=== PATIENT | female | born 1960 | race Caucasian/White ===

== ENCOUNTER 2023-12-11 10:46 | Inpatient (IN) | payer MEDICARE, OTHER ==
[2023-12-11] MEDS ORDERED: Ondansetron ODT 4 MG TAB PO PRN (11:59)
[2023-12-11] MEDS ORDERED: Ipratropium/Albuterol 3 ML NEB NEB PRN (11:59)
[2023-12-11] MEDS ORDERED: Guaifenesin DM 100-10/5 ML UDCUP PO PRN (11:59)
[2023-12-11 12:03] VITALS: BMI 23.9
[2023-12-11] MEDS: Sodium Chloride 0.9% 1,000 ML IV SCH (12:44)
[2023-12-11] MEDS ORDERED: Glucagon 1 MG/ML KIT IM PRN (12:45)
[2023-12-11] MEDS ORDERED: REMDESIVIR 200 MG in Sodium Chloride 0.9% 250 ML 210 ML IV SCH (12:45)
[2023-12-11] MEDS ORDERED: Dextrose 5% in Water 1,000 ML IV PRN (12:45)
[2023-12-11] MEDS ORDERED: Dextrose 50% Abboject 50 ML SYRINGE SLOW IVP PRN (12:45)
[2023-12-11 15:16] LABS: Troponin I Less than 0.010 ng/mL (< 0.028)
[2023-12-11] MEDS: Insulin Regular 300 UNITS/3 ML VIAL SC PRN (18:03)
[2023-12-11] MEDS: Famotidine 20 MG TAB PO SCH (21:10)
[2023-12-11] MEDS: HYDROcodone/Acetaminophen 10/325 mg Tablet PO SCH (21:10)
[2023-12-11] MEDS: Ventolin HFA Inhaler 60 PUFF INHALER INH PRN (22:45)
[2023-12-12] MEDS: ALPRAZolam 0.5 MG TAB PO PRN (00:27)
[2023-12-12] MEDS: cefTRIAXone\\ROCEPHIN 1 GM in Sodium Chloride 0.9% 100 ML IVPB SCH (04:12)
[2023-12-12 05:01] LABS: Hematocrit 31.4 % (34.9-44.5); Mean Corpuscular HGB CONC 28.7 g/dL (32.0-36.0); Mean Corpuscular Hemoglobin 22.2 pg (27.0-33.0); Mean Corpuscular Volume 77.5 fl (81.6-98.3); Mean Platelet Volume 9.2 fl (7.4-10.4); Platelet Count 217 10x3/uL (150-450); RBC Distribution Width 18.2 % (11.5-14.5); Red Blood Cell (RBC) Count 4.05 10x6/uL (3.90-5.03)
[2023-12-12 05:02] LABS: Anion Gap 10 mmol/L (10-20); BUN (Urea Nitrogen) 10 mg/dL (9.8-20.1); Calc. Creatinine Clearance 70 mL/min (70-130); Calcium 8.1 mg/dL (7.8-10.44); Carbon Dioxide 22 mmol/L (23-31); Chloride 108 mmol/L (98-107); Estimated GFR 89; Glucose 163 mg/dL (80-115); Potassium 3.7 mmol/L (3.5-5.1); Sodium 136 mmol/L (136-145)
[2023-12-12 05:33] LABS: MDiff Complete? YES
[2023-12-12 06:03] LABS: Band 14 % (5-11); Lymphocytes 3 % (21-51); Monocytes 1 % (0-10); Neutrophil 82 % (42-75)
[2023-12-12 06:11] LABS: Anisocytosis SLIGHT = 6-15 cells (100X) (0-5/hpf); Hypochromia SLIGHT = 6-15 cells (100X) (0-5/hpf); Macrocytosis SLIGHT = 6-15 cells (100X) (0-5/hpf); Microcytosis SLIGHT = 6-15 cells (100X) (0-5/hpf); Ovalocytes SLIGHT = 2-5 cells (100X) (0-1/hpf); Platelet Adequacy Comment Appears Adequate; Schistocytes SLIGHT = 2-5 cells (100X) (0-1/hpf)
[2023-12-12] MEDS: Enoxaparin 40 MG (0.4 mL) SYRINGE SC SCH (09:20)
[2023-12-12] MEDS: Azithromycin 500 MG in Sodium Chloride 0.9% 250 ML 250 ML IVPB SCH (09:20)
[2023-12-12] MEDS: predniSONE 20 MG TAB PO SCH (09:20)
[2023-12-12] MEDS: ALPRAZolam 0.5 MG TAB PO SCH ×2 (11:58→20:28)
[2023-12-12] MEDS ORDERED: REMDESIVIR 100 MG in Sodium Chloride 0.9% 250 ML 230 ML IV SCH (12:45)
[2023-12-12] MEDS ORDERED: ALPRAZolam 0.5 MG TAB PO SCH (15:00)
[2023-12-12] MEDS: Budesonide 0.5 MG/2 ML NEB INH SCH (19:55)
[2023-12-12] MEDS: Mometasone 100 MCG/PUFF (1 INHALER) INH SCH (19:55)
[2023-12-12] MEDS: Atorvastatin Calcium 40 MG TAB PO SCH (20:28)
[2023-12-12] MEDS: Benzonatate 100 MG CAP PO PRN (20:28)
[2023-12-12] MEDS: guaiFENesin ER 600 MG TAB PO SCH (21:58)
[2023-12-12] MEDS: HYDROcodone/Acetaminophen 10/325 mg Tablet PO SCH (21:58)
[2023-12-13 04:12] LABS: #Monocytes 0.9 10x3/uL (0.0-1.1); #Neutrophils 18.4 10x3/uL (1.5-8.4); %Basophils 0.1 % (0.0-2.0); %Lymphocytes 5.1 % (18.0-47.0); %Monocytes 4.2 % (0.0-10.0); %Neutrophils 89.9 % (40.0-75.0); Hematocrit 28.6 % (34.9-44.5); Hemoglobin 8.5 g/dL (12.0-15.5); Mean Corpuscular HGB CONC 29.7 g/dL (32.0-36.0); Mean Corpuscular Volume 77.3 fl (81.6-98.3); Platelet Count 203 10x3/uL (150-450); RBC Distribution Width 18.4 % (11.5-14.5); White Blood Cell (WBC) Count 20.5 10x3/uL (3.5-10.5)
[2023-12-13 04:15] LABS: Anion Gap 8 mmol/L (10-20); BUN (Urea Nitrogen) 14 mg/dL (9.8-20.1); Calc. Creatinine Clearance 75 mL/min (70-130); Carbon Dioxide 23 mmol/L (23-31); Chloride 109 mmol/L (98-107); Estimated GFR 96; Glucose 150 mg/dL (80-115); Potassium 4.1 mmol/L (3.5-5.1); Sodium 136 mmol/L (136-145)
[2023-12-13] MEDS: Multivit, Therapeutic 1 TAB PO SCH (09:12)
[2023-12-13] MEDS: Aspirin 81 mg Enteric Coated Tablet PO SCH (09:12)
[2023-12-13] MEDS: DULoxetine 30 MG CAP PO SCH (09:12)
[2023-12-13] MEDS: Clopidogrel Bisulfate 75 MG TAB PO SCH (09:12)
[2023-12-13] MEDS: Acetaminophen 325 MG TAB PO PRN (09:39)
[2023-12-13] MEDS: HYDROcodone/Acetaminophen 10/325 mg Tablet PO PRN (11:10)
[2023-12-13] MEDS: Furosemide 40 MG (4 mL) VIAL SLOW IVP SCH (11:11)
[2023-12-13] MEDS: Furosemide 20 MG (2 mL) VIAL SLOW IVP SCH (14:21)
[2023-12-13] MEDS: Polyethylene Glycol 3350 17 GM Packet PO SCH (22:46)
[2023-12-14] MEDS ORDERED: Ipratropium/Albuterol 3 ML NEB NEB PRN (02:11)
[2023-12-14] MEDS: Nitroglycerin 2% Ointment 1 INCH/1 GM Packet TOP SCH (02:38)
[2023-12-14] MEDS: methylPREDNISolone Sod Succ 40 MG VIAL IVP SCH (04:05)
[2023-12-14] MEDS: cefTRIAXone\\ROCEPHIN 2 GM in Sodium Chloride 0.9% 100 ML IVPB SCH (04:19)
[2023-12-14 04:24] LABS: #Neutrophils 11.1 10x3/uL (1.5-8.4); %Basophils 0.1 % (0.0-2.0); %Eosinophils 0.1 % (0.0-6.0); %Monocytes 7.5 % (0.0-10.0); %Neutrophils 80.4 % (40.0-75.0); Hematocrit 33.8 % (34.9-44.5); Hemoglobin 10.1 g/dL (12.0-15.5); Mean Corpuscular HGB CONC 29.9 g/dL (32.0-36.0); Mean Corpuscular Hemoglobin 22.6 pg (27.0-33.0); Mean Corpuscular Volume 75.8 fl (81.6-98.3); Mean Platelet Volume 9.6 fl (7.4-10.4); Platelet Count 195 10x3/uL (150-450); RBC Distribution Width 18.5 % (11.5-14.5); Red Blood Cell (RBC) Count 4.46 10x6/uL (3.90-5.03); White Blood Cell (WBC) Count 13.8 10x3/uL (3.5-10.5)
[2023-12-14 04:33] LABS: Anion Gap 16 mmol/L (10-20); BUN (Urea Nitrogen) 15 mg/dL (9.8-20.1); Calc. Creatinine Clearance 66 mL/min (70-130); Calcium 8.6 mg/dL (7.8-10.44); Carbon Dioxide 24 mmol/L (23-31); Chloride 99 mmol/L (98-107); Estimated GFR 81; Glucose 76 mg/dL (80-115); Potassium 3.7 mmol/L (3.5-5.1); Sodium 135 mmol/L (136-145)
[2023-12-14 04:41] LABS: Troponin I 0.013 ng/mL (< 0.028)
[2023-12-14] MEDS ORDERED: Budesonide 0.5 MG/2 ML NEB INH SCH (06:30)
[2023-12-14] MEDS: Mometasone/Formoterol 200/5 60 PUFF INH SCH (07:00)
[2023-12-14] MEDS: Zinc Sulfate 220 MG CAP PO SCH (08:09)
[2023-12-14] MEDS: Dexamethasone 4 mg/ml Vial SLOW IVP SCH (08:09)
[2023-12-14] MEDS: guaiFENesin ER 600 MG TAB PO SCH (08:10)
[2023-12-14] MEDS: Polyethylene Glycol 3350 17 GM Packet PO SCH (08:10)
[2023-12-14 08:27] LABS: Troponin I 0.018 ng/mL (< 0.028)
[2023-12-14 13:54] LABS: Troponin I Less than 0.010 ng/mL (< 0.028)
[2023-12-15] MEDS: cefTRIAXone\\ROCEPHIN 2 GM in Sodium Chloride 0.9% 100 ML IVPB SCH (05:40)
[2023-12-15 12:25] VITALS: TEMP 98.7
[2023-12-15 12:53] VITALS: BP 120/71
== END 2023-12-15 14:42 | disposition home or self-care (01) | DRG 871 ==
LOC: CSHTELE 11:28
PROVIDERS: ADMIT Family Medicine; ATTEND Family Medicine
DX: A41.9 Sepsis, unspecified organism (principal); I50.33 Acute on chronic diastolic (congestive) heart failure; J96.21 Acute and chronic respiratory failure with hypoxia; U07.1 COVID-19; J18.9 Pneumonia, unspecified organism; J44.1 Chronic obstructive pulmonary disease with (acute) exacerbation; E78.5 Hyperlipidemia, unspecified; E11.9 Type 2 diabetes mellitus without complications; I11.0 Hypertensive heart disease with heart failure; D64.9 Anemia, unspecified; Z99.81 Dependence on supplemental oxygen; Z79.899 Other long term (current) drug therapy; Z79.84 Long term (current) use of oral hypoglycemic drugs; Z79.82 Long term (current) use of aspirin; Z88.2 Allergy status to sulfonamides; Z79.51 Long term (current) use of inhaled steroids; Z90.49 Acquired absence of other specified parts of digestive tract; Z98.890 Other specified postprocedural states
CPT/HCPCS: 36415; 36416; 71045; 80048; 83880; 84484; 85025; 86140; 93005; 93010; 94664; 94760; 94762; J0456; J0696; J1100; J1650; J1815; J1940; J2920; J3490; J7050; J7512